=== PATIENT | male | born 1970 | race Caucasian/White ===

== ENCOUNTER 2017-06-15 14:49 | Inpatient (IN) | payer BC ==
[~2017-06-15] VITALS: Ht 188 cm; Wt 117.9 kg
[~2017-06-15 14:49] MED LIST: IBUPROFEN800 MG ORAL; PERCOCET 5-3251 EACH ORAL; ZOFRAN ODT4 MG ORAL
[2017-06-15] MEDS ORDERED: Dicyclomine HCl 10mg/5ml oral soln ORAL ONE (15:15)
[2017-06-15] MEDS ORDERED: Mylanta II UD 30ml ORAL ONE (15:15)
[2017-06-15] MEDS ORDERED: Lidocaine 2% Visc 15ml soln ORAL ONE (15:15)
[2017-06-15 15:30] VITALS: BP 143/79
--- NOTE | 2017-06-15 15:40 | Emergency Room Report ---
History of Present Illness General Chief Complaint: Abdominal Pain Source: Patient Present Illness HPI 46-year-old male, history of gout, kidney stones, p/w epigastric abdominal pain one day. Patient states pain started after vomiting, localized to the gastric and left upper quadrant, non radiating, burning in nature, intermittent. Worse with eating, No relieving factors. Severity is 5/10. Pt reports n/v, 2 episodes of nbnb vomiting, denies diarrhea Denies fever, chills. No hx of abdominal surgeries. No hx of endoscopies/colonoscopies. Patient states that this does not feel like his kidney stone pain Allergies: Coded Allergies: No Known Allergies (Unverified , 04/11/15) Patient History Past Medical History: see triage record Past Surgical History: none Pertinent Family History: none Reviewed Nursing Documentation: PMH: Agreed, PSxH: Agreed Nursing Documentation-PMH Past Medical History: No History, Except For Review of Systems All Other Systems: negative except mentioned in HPI Physical Exam Vital Signs Date Time Temp Pulse Resp B/P (MAP) Pulse Ox O2 Delivery O2 Flow Rate FiO2 06/15/17 14:54 80 18 158/97 97 Room Air Sp02 EP Interpretation: reviewed, normal General Appearance: normal inspection, well appearing, no apparent distress, alert, GCS 15, non-toxic Head: normocephalic, atraumatic Eyes: bilateral eye normal inspection, bilateral eye PERRL, bilateral eye EOMI ENT: normal ENT inspection, normal pharynx, normal voice, moist mucus membranes Neck: normal inspection, full range of motion, supple Respiratory: normal inspection, lungs clear, normal breath sounds, no respiratory distress, no retraction, no wheezing, speaking full sentences, chest symmetrical Cardiovascular #1: normal inspection, regular rate, rhythm, no edema, normal capillary refill Cardiovascular #2: 2+ radial (R), 2+ radial (L) Gastrointestinal: normal inspection, non tender, soft, non-distended, no guarding Genitourinary: no CVA tenderness Musculoskeletal: normal inspection, back normal, normal range of motion, non- tender Neurologic: normal inspection, alert, oriented x3, responsive, motor strength/ tone normal, sensory intact, normal gait, speech normal Psychiatric: normal inspection, judgement/insight normal, memory normal Skin: normal inspection, normal color, no rash, warm/dry, well hydrated, normal turgor Medical Decision Making Diagnostic Impression: Primary Impression: Pancreatitis Additional Impression: Nausea & vomiting ER Course 46-year-old male with epigastric abdominal pain Differential Diagnosis: Gastritis, gastroenteritis, cholecystitis, appendicitis, diverticulitis, cardiac , UTI/pyelo At this time abdomen is soft nontender, appears very well and is not in any pain , not likely to have acute intra-abdominal surgical pathology, will hold CT for now. Plan: Basic labs, ua, ekg Pepcid, maalox, pain control, IVF ER course: Patient has remained stable during ED stay. Pain not improved labs showing pancreatitis with elevated lipase abd continues to be soft, US performed of abdomen IVF and morphine given, pt NPO Disposition: Patient is to be admitted to med surg to Dr. Doe who has accepted patient for admission Please note that this Emergency Department Report was dictated using Car reviewsspiritual counselor technology software, occasionally this can lead to erroneous entry secondary to interpretation by the dictation equipment EKG Diagnostic Results EP Interpretation: Yes Rate: normal Rhythm: NSR ST Segments: No acute changes ASA given to patient: No Rhythm Strip EP Interpretation: Yes Rate: 68 Rhythm: NSR, no PVCs, no ectopy Laboratory Tests Test 06/15/17 15:21 06/15/17 15:55 White Blood Count 9.1 K/UL (4.8-10.8) Red Blood Count 5.67 M/UL (4.70-6.10) Hemoglobin 16.9 G/DL (14.2-18.0) Hematocrit 50.2 % (42.0-52.0) Mean Corpuscular Volume 89 FL (80-99) Mean Corpuscular Hemoglobin 29.9 PG (27.0-31.0) Mean Corpuscular Hemoglobin Concent 33.7 G/DL (32.0-36.0) Red Cell Distribution Width 11.2 % (11.6-14.8) L Platelet Count 281 K/UL (150-450) Mean Platelet Volume 8.3 FL (6.5-10.1) Neutrophils (%) (Auto) 79.4 % (45.0-75.0) H Lymphocytes (%) (Auto) 14.4 % (20.0-45.0) L Monocytes (%) (Auto) 4.3 % (1.0-10.0) Eosinophils (%) (Auto) 1.3 % (0.0-3.0) Basophils (%) (Auto) 0.6 % (0.0-2.0) Sodium Level 141 MMOL/L (136-145) Potassium Level 3.7 MMOL/L (3.5-5.1) Chloride Level 104 MMOL/L (98-107) Carbon Dioxide Level 27 MMOL/L (21-32) Anion Gap 10 mmol/L (5-15) Blood Urea Nitrogen 13 mg/dL (7-18) Creatinine 0.9 MG/DL (0.55-1.30) Estimate Glomerular Filtration Rate > 60 mL/min (>60) Glucose Level 202 MG/DL (74-106) H Calcium Level 9.6 MG/DL (8.5-10.1) Total Bilirubin 2.2 MG/DL (0.2-1.0) H Direct Bilirubin 1.2 MG/DL (0.0-0.3) H Aspartate Amino Transferase (AST) 261 U/L (15-37) H Alanine Aminotransferase (ALT) 186 U/L (12-78) H Alkaline Phosphatase 72 U/L (46-116) Total Protein 7.1 G/DL (6.4-8.2) Albumin 4.3 G/DL (3.4-5.0) Globulin 2.8 g/dL Albumin/Globulin Ratio 1.5 (1.0-2.7) Lipase 93758 U/L (73-393) H Urine Color Yellow Urine Appearance Clear Urine pH 7 (4.5-8.0) Urine Specific Tyler 1.010 (1.005-1.035) Urine Protein 2+ (NEGATIVE) H Urine Glucose (UA) Negative (NEGATIVE) Urine Ketones Negative (NEGATIVE) Urine Occult Blood Negative (NEGATIVE) Urine Nitrite Negative (NEGATIVE) Urine Bilirubin Negative (NEGATIVE) Urine Urobilinogen Normal MG/DL (0.0-1.0) Urine Leukocyte Esterase 1+ (NEGATIVE) H Urine RBC 0-2 /HPF (0 - 0) H Urine WBC 0-2 /HPF (0 - 0) Urine Squamous Epithelial Cells None /LPF (NONE/OCC) Urine Bacteria Few /HPF (NONE) Last Vital Signs Date Time Temp Pulse Resp B/P (MAP) Pulse Ox O2 Delivery O2 Flow Rate FiO2 06/15/17 14:54 80 18 158/97 97 Room Air Disposition: ADMITTED INPATIENT Condition: Serious Scripts Famotidine (PEPCID) 40 Mg Tablet 40 MG PO DAILY for 7 Days, #7 TAB 0 Refills Prov: Jasper Cortez M.D. 06/15/17 Referrals: NON PHYSICIAN (PCP) Jasper Cortez M.D. Jun 15, 2017 15:40
[2017-06-15 15:43] LABS: BASOPHILS % (AUTO) 0.6 % (0.0-2.0); EOSINOPHILS % (AUTO) 1.3 % (0.0-3.0); LYMPHOCYTES % (AUTO) 14.4 % (20.0-45.0); MEAN CORPUSCULAR HEMOGLOBIN 29.9 PG (27.0-31.0); MEAN CORPUSCULAR HGB CONC 33.7 G/DL (32.0-36.0); MEAN CORPUSCULAR VOLUME 89 FL (80-99); MEAN PLATELET VOLUME 8.3 FL (6.5-10.1); MONOCYTES % (AUTO) 4.3 % (1.0-10.0); NEUTROPHILS % (AUTO) 79.4 % (45.0-75.0); PLATELET COUNT 281 K/UL (150-450); RED BLOOD COUNT 5.67 M/UL (4.70-6.10); RED CELL DISTRIBUTION WIDTH 11.2 % (11.6-14.8); WHITE BLOOD COUNT 9.1 K/UL (4.8-10.8)
[2017-06-15 15:53] LABS: ANION GAP 10 mmol/L (5-15); CALCIUM 9.6 MG/DL (8.5-10.1); CARBON DIOXIDE 27 MMOL/L (21-32); CHLORIDE 104 MMOL/L (98-107); CREATININE 0.9 MG/DL (0.55-1.30); GLOMERULAR FILTRATION RATE > 60 mL/min (>60); POTASSIUM 3.7 MMOL/L (3.5-5.1); SODIUM 141 MMOL/L (136-145)
[2017-06-15] MEDS ORDERED: PEPCID40 MG PO (16:04)
[2017-06-15 16:07] LABS: ALANINE AMINOTRANSFERASE 186 U/L (12-78); ALBUMIN/GLOBULIN RATIO 1.5 (1.0-2.7); ASPARTATE AMINO TRANSFERASE 261 U/L (15-37); LIPASE 14502 U/L (73-393); TOTAL PROTEIN 7.1 G/DL (6.4-8.2)
[2017-06-15 16:08] LABS: APPEARANCE,URINE CLEAR; KETONES,URINE NEGATIVE (NEGATIVE); LEUKOCYTE ESTERASE ,URINE 1+ (NEGATIVE); NITRITE,URINE NEGATIVE (NEGATIVE); PH,URINE 7 (4.5-8.0); PROTEIN,URINE 2+ (NEGATIVE); UROBILINOGEN,URINE NORMAL MG/DL (0.0-1.0)
[2017-06-15 16:14] LABS: BILIRUBIN,DIRECT 1.2 MG/DL (0.0-0.3)
[2017-06-15 16:14] LABS: BACTERIA,URINE FEW /HPF; RBC,URINE 0-2 /HPF (0 - 0); WBC,URINE 0-2 /HPF (0 - 0)
[2017-06-15] MEDS ORDERED: Morphine Sulfate 4mg/ml Inj IVP ONE (16:30)
[2017-06-15 17:32] VITALS: BP 154/45
[2017-06-15] MEDS ORDERED: ALLOPURINOL300 M1 ORAL (18:44)
[2017-06-15] MEDS ORDERED: POTASSIUM CITR15 MEQ PO (18:44)
[2017-06-15 19:00] VITALS: BP 152/80
[2017-06-15 19:15] VITALS: BP 154/82
[2017-06-15 20:00] VITALS: BP 142/88
[2017-06-15] MEDS ORDERED: Flu Vaccine Quadrivalent 0.5ml IM ONE (21:00)
[2017-06-15] MEDS: NS w/KCl 20mEq 1,000 ML IV SCH (21:00)
[2017-06-15] MEDS: Morphine Sulfate 2mg/ml Inj IVP PRN (22:05)
[2017-06-16] VITALS (8 sets, daily range): BP systolic 139–154; BP diastolic 78–88
--- NOTE | 2017-06-16 00:15 | History and Physical Report ---
DATE OF ADMISSION: 06/15/2017 REASON FOR ADMISSION: Abdominal pain with laboratory evidence of pancreatitis. HISTORY OF PRESENT ILLNESS: This is a 46-year-old male with no prior history of hepatobiliary disease, presented to the emergency room with one day of vomiting, left upper quadrant abdominal pain, nausea, and anorexia. Symptoms were worsened after eating and laboratory workup was notable for a lipase level above 14,000. The patient felt well after Thanksgiving and up to yesterday eating well without any symptoms. He notes in April, he had an episode of abdominal discomfort that he attributed to an episode of stomach flu. He has never had any symptoms similar to today's presentation. The patient has never had an endoscopy or colonoscopy. No abdominal surgery. He is unaware of any history of gallstones. PAST MEDICAL HISTORY: Notable for gout and nephrolithiasis. ALLERGIES: None. FAMILY HISTORY: Noncontributory. SOCIAL HISTORY: Negative for smoking, alcohol, or substance abuse. He drinks maybe at most one drink four to five times a week. REVIEW OF SYSTEMS: Borderline cholesterol elevation in the past, otherwise, all systems negative. Of note, he has taken multitude of herbal remedies on frequent occasions over the past years. PHYSICAL EXAMINATION: GENERAL: The patient is well-developed, well-nourished, and moderately obese. VITAL SIGNS: Blood pressure 158/97, pulse 80, respirations 18, and afebrile. HEENT: Conjunctivae are pink. Sclerae are anicteric. Oropharynx clear. NECK: Supple. Jugular venous pressure normal. LUNGS: Clear. CARDIAC: Regular rhythm and rate. Normal S1 and S2 with no murmur. ABDOMEN: Soft. Mild tenderness in the midepigastric and right upper quadrant. No guarding. No rebound. EXTREMITIES: Without edema. SKIN: Without rash or discoloration. LABORATORY STUDIES: White count 9 and hemoglobin 16.9. Potassium 3.7 and glucose 202. AST and ALT are 261 and 186 respectively. Alkaline phosphatase 72. Lipase 14,502. Total bilirubin 2.2. IMPRESSION: 1. Acute pancreatitis. 2. Hyperglycemia. 3. Transaminitis. PLAN: 1. NPO. 2. Intravenous fluid hydration. 3. Serial hepatobiliary enzymes. 4. Abdominal ultrasound. 5. Lipid panel. 6. Pain control. 7. Further recommendations will follow based on results of preliminary workup. Jerzy Doe M.D. DR: MAIRELY JOB#: [id number] CC:
[2017-06-16] MEDS: NS w/KCl 20mEq 1,000 ML IV SCH ×3 (05:00→21:47)
[2017-06-16 08:02] LABS: BASOPHILS % (AUTO) 0.9 % (0.0-2.0); EOSINOPHILS % (AUTO) 1.3 % (0.0-3.0); LYMPHOCYTES % (AUTO) 15.7 % (20.0-45.0); MEAN CORPUSCULAR HEMOGLOBIN 30.2 PG (27.0-31.0); MEAN CORPUSCULAR HGB CONC 34.1 G/DL (32.0-36.0); MEAN CORPUSCULAR VOLUME 89 FL (80-99); MEAN PLATELET VOLUME 8.1 FL (6.5-10.1); MONOCYTES % (AUTO) 5.3 % (1.0-10.0); NEUTROPHILS % (AUTO) 76.9 % (45.0-75.0); PLATELET COUNT 276 K/UL (150-450); RED CELL DISTRIBUTION WIDTH 11.3 % (11.6-14.8); WHITE BLOOD COUNT 9.7 K/UL (4.8-10.8)
[2017-06-16 08:09] LABS: ALANINE AMINOTRANSFERASE 204 U/L (12-78); ANION GAP 7 mmol/L (5-15); ASPARTATE AMINO TRANSFERASE 121 U/L (15-37); BILIRUBIN,DIRECT 0.2 MG/DL (0.0-0.3); CALCIUM 8.6 MG/DL (8.5-10.1); CARBON DIOXIDE 28 MMOL/L (21-32); CHLORIDE 106 MMOL/L (98-107); CHOLESTEROL 159 MG/DL (< 200); CHOLESTEROL/HDL RATIO 4.8 (3.3-4.4); CREATININE 0.8 MG/DL (0.55-1.30); GLOMERULAR FILTRATION RATE > 60 mL/min (>60); LIPASE 2816 U/L (73-393); POTASSIUM 3.6 MMOL/L (3.5-5.1); SODIUM 141 MMOL/L (136-145); TOTAL PROTEIN 6.6 G/DL (6.4-8.2)
--- NOTE | 2017-06-16 10:10 | Diagnostic Imaging Report ---
Indication: Epigastric pain, nausea, vomiting Technique: Tomas-scale and duplex images of the upper abdomen were obtained Comparison: None Findings: Gallbladder demonstrates numerous small gallstones. No gallbladder wall thickening or pericholecystic fluid Sonographic Latham's sign is negative. Common bile duct measures 6 mm in diameter. No intrahepatic biliary ductal dilatation. Liver is enlarged, demonstrates diffusely increased echogenicity, consistent with diffuse hepatocellular disease, most likely fatty change. Focal sparing is noted in the usual location adjacent the gallbladder fossa. Portal vein and hepatic veins are patent. Pancreas is incompletely visualized due to overlying bowel gas, visualized portions are unremarkable. The spleen is enlarged, measuring 14.9 cm long axis dimension. Left kidney measures 14 cm in length. Right kidney measures 12.9 cm length. Both kidneys demonstrate normal echogenicity. There is no hydronephrosis. No focal abnormality . Abdominal aorta is partially obscured by bowel gas, visualized portions are non-aneurysmal . Impression: Cholelithiasis. Negative for dilated ducts Hepatomegaly. Liver demonstrates diffusely increased echogenicity, consistent with diffuse hepatocellular disease, most likely fatty change. Splenomegaly Note incomplete visualization of the abdominal aorta and pancreas
--- NOTE | 2017-06-16 16:32 | Consultation ---
History of Present Illness General Date patient seen: Jun 16, 2017 Chief Complaint: Abdominal Pain Reason for Consultation: gallstone pancreatitis Present Illness HPI 46 year old otherwise healthy male presented to ED with complaints of worsening upper abdominal pain x 1 day. As per patient, he was in his normal state of healthy until yesterday morning when he noted some sharp upper epigastric abdominal pain. Pain described as sharp 10/10 at max epigastric upper abdominal pain without radiation. pain associated with nausea and two episode of non bloody emesis. as pain worsened he came to ED for evaluation. states he has had similar but much milder episodes over the past year and believed it to be "gas" which would resolve shortly after onset. In ED labs demonstrated elevated LFT's and lipase. Ultrasound performed and demonstrated gallstones. Surgery called to evaluate PMHx: gout, kidney stones PSHx: none NKDA FHx: non contributory Social Hx: negative x3 Meds: K+ and allopurinol Allergies: Coded Allergies: BENZONATATE (Verified Allergy, Unknown, 06/15/17) ABDOMINAL PAIN.NAUSEA Medication History Scheduled Allopurinol* (Allopurinol*), 300 MG ORAL DAILY, (Reported) Famotidine (Pepcid), 40 MG PO DAILY Ibuprofen* (Motrin*), 800 MG ORAL Q8H Potassium Citrate (Potassium Citrate ER), 10 MEQ PO BID, (Reported) Scheduled PRN Ondansetron Odt* (Zofran Odt*), 4 MG ORAL Q8HR PRN for Nausea & Vomiting Oxycodone/Acetaminophen 5-325* (Percocet 5-325 Mg Tablet*), 1 TAB ORAL Q6H PRN for For Pain Patient History History Provided By: Patient Healthcare decision maker SELF Resuscitation status Full Code Advanced Directive on File No Past Medical/Surgical History Past Medical/Surgical History: (1) Acute gallstone pancreatitis Review of Systems Constitutional: Denies: no symptoms, see HPI, chills, sweats, fever, malaise, weakness, other Eye: Denies: no symptoms, see HPI, eye pain, blurred vision, tearing, double vision, nose pain, nose congestion, acuity changes, discharge, other ENT: Denies: no symptoms, see HPI, ear pain, ear discharge, nose pain, nose congestion, throat pain, throat swelling, mouth pain, hearing loss, nasal discharge, other Respiratory: Denies: no symptoms, see HPI, cough, orthopnea, shortness of breath, stridor, wheezing, LEWIS, sputum, other Cardiovascular: Denies: no symptoms, see HPI, chest pain, edema, palpitations, syncope, PND, other Gastrointestinal: Reports: abdominal pain, nausea, vomiting Genitourinary: Denies: no symptoms, see HPI, discharge, dysuria, frequency, hematuria, pain, retention, incontinence, urgency, vag bleed/dc, other Musculoskeletal: Denies: no symptoms, see HPI, back pain, gout, joint pain, joint swelling, muscle pain, muscle stiffness, other Skin: Denies: no symptoms, see HPI, rash, change in color, change in hair/nails , dryness, lesions, other Psychiatric: Denies: no symptoms, see HPI, prior hx, anxiety, depressed feelings, emotional problems, SI, HI, hallucinations, other Neurological: Denies: no symptoms, see HPI, headache, numbness, paresthesia, seizure, tingling, tremors, focal weakness, syncope, dizziness, other Endocrine: Denies: no symptoms, see HPI, excessive sweating, flushing, intolerance to temperature, increased thirst, increased urine, unexplained weight loss, other Hematologic/Lymphatic: Denies: no symptoms, see HPI, anemia, blood clots, easy bleeding, easy bruising, swollen glands, diathesis, other All Other Systems: negative except mentioned in HPI Physical Exam General Appearance: WD/WN, no apparent distress, alert Lines, tubes and drains: peripheral HEENT: mucous membranes moist, PERRL Neck: normal inspection Respiratory/Chest: normal breath sounds, no respiratory distress, no accessory muscle use Cardiovascular/Chest: normal peripheral pulses, normal rate, regular rhythm Abdomen: non tender, soft, no organomegaly, no mass, distended, other - mild epigastric discomfort on deep palpation Extremities: normal inspection Skin Exam: normal pigmentation, warm/dry Neurologic: alert, oriented x 3, responsive Last 24 Hour Vital Signs Date Time Temp Pulse Resp B/P (MAP) Pulse Ox O2 Delivery O2 Flow Rate FiO2 06/16/17 12:00 98.5 74 19 149/88 95 06/16/17 09:00 98.0 74 20 154/87 95 06/16/17 08:00 97.8 72 19 146/86 95 06/16/17 04:01 Room Air 06/16/17 04:00 97.9 18 153/78 92 06/16/17 00:01 Room Air 06/16/17 00:00 97.9 76 19 139/84 93 06/15/17 20:01 Room Air 06/15/17 20:00 97.9 74 18 142/88 93 06/15/17 19:15 97.9 76 19 154/82 95 Room Air 06/15/17 19:00 97.9 76 19 152/80 95 Room Air 06/15/17 18:00 74 24 154/45 95 Room Air 06/15/17 17:32 74 24 154/45 95 Room Air Intake and Output 06/16/17 06/17/17 19:00 07:00 Intake Total 817.5 ml Balance 817.5 ml IV Total 817.5 ml Laboratory Tests Test 06/16/17 07:29 White Blood Count 9.7 K/UL (4.8-10.8) Red Blood Count 5.10 M/UL (4.70-6.10) Hemoglobin 15.4 G/DL (14.2-18.0) Hematocrit 45.2 % (42.0-52.0) Mean Corpuscular Volume 89 FL (80-99) Mean Corpuscular Hemoglobin 30.2 PG (27.0-31.0) Mean Corpuscular Hemoglobin Concent 34.1 G/DL (32.0-36.0) Red Cell Distribution Width 11.3 % (11.6-14.8) L Platelet Count 276 K/UL (150-450) Mean Platelet Volume 8.1 FL (6.5-10.1) Neutrophils (%) (Auto) 76.9 % (45.0-75.0) H Lymphocytes (%) (Auto) 15.7 % (20.0-45.0) L Monocytes (%) (Auto) 5.3 % (1.0-10.0) Eosinophils (%) (Auto) 1.3 % (0.0-3.0) Basophils (%) (Auto) 0.9 % (0.0-2.0) Sodium Level 141 MMOL/L (136-145) Potassium Level 3.6 MMOL/L (3.5-5.1) Chloride Level 106 MMOL/L (98-107) Carbon Dioxide Level 28 MMOL/L (21-32) Anion Gap 7 mmol/L (5-15) Blood Urea Nitrogen 11 mg/dL (7-18) Creatinine 0.8 MG/DL (0.55-1.30) Estimat Glomerular Filtration Rate > 60 mL/min (>60) Glucose Level 130 MG/DL (74-106) H Hemoglobin A1c 6.1 % (4.3-6.0) H Calcium Level 8.6 MG/DL (8.5-10.1) Total Bilirubin 0.9 MG/DL (0.2-1.0) Direct Bilirubin 0.2 MG/DL (0.0-0.3) Aspartate Amino Transf (AST/SGOT) 121 U/L (15-37) H Alanine Aminotransferase (ALT/SGPT) 204 U/L (12-78) H Alkaline Phosphatase 67 U/L (46-116) Total Protein 6.6 G/DL (6.4-8.2) Albumin 3.7 G/DL (3.4-5.0) Triglycerides Level 170 MG/DL (30-150) H Cholesterol Level 159 MG/DL (< 200) LDL Cholesterol 108 mg/dL (<100) H HDL Cholesterol 33 MG/DL (40-60) L Cholesterol/HDL Ratio 4.8 (3.3-4.4) H Lipase 2816 U/L (73-393) H Height (Feet): 6 Height (Inches): 2.00 Weight (Pounds): 260 Medications Current Medications Medications (Trade) Dose Ordered Sig/Vero Route PRN Reason Start Time Stop Time Status Last Admin Dose Admin Clonidine HCl (Catapres) 0.1 mg Q4H PRN ORAL SBP above 160 06/16/17 11:00 07/16/17 10:59 Famotidine (Pepcid I.v.) 20 mg Q12HR IVP 06/16/17 09:00 07/16/17 08:59 06/16/17 08:35 Heparin Sodium (Porcine) (Heparin 5000 units/ml) 5,000 units EVERY 12 HOURS SUBQ 06/16/17 21:00 07/16/17 20:59 Morphine Sulfate (Morphine Sulfate) 2 mg Q4H PRN IVP For Pain Scale 4-10 06/15/17 21:30 06/22/17 21:29 06/15/17 22:05 Ondansetron HCl (Zofran) 4 mg Q4H PRN IVP Nausea & Vomiting 06/15/17 19:15 07/15/17 19:14 06/15/17 22:10 Sodium Chloride 1,000 ml @ 125 mls/hr Q8H IV 06/15/17 20:00 07/15/17 19:59 06/16/17 12:23 Assessment/Plan Problem List: (1) Acute gallstone pancreatitis Assessment & Plan: 46 year old male with acute gallstone pancreatitis. Afebrile, HD stable, no leukocytosis, lft's and lipase improving. Discussed above findings with patient in detail. Given acute episode would recommend cholecystectomy during this admission once pancreatitis resolves. Discussed care with patient and he states that he has been doing research on the topic and has decided that he would like to proceed with cholecystectomy during this admission. Risks, benefits, and alternatives to surgery discussed with patient. Will proceed with surgery once pancreatitis resolves over the next few days. -NPO with IV fluids -trend labs -serial exams -will follow. thank you for this consultation. ICD Codes: K85.10 - Biliary acute pancreatitis without necrosis or infection SNOMED: [id number] Status: stable Tom Osborn Jun 16, 2017 16:32
[2017-06-16] MEDS: Morphine Sulfate 2mg/ml Inj IVP PRN (17:20)
--- NOTE | 2017-06-16 21:47 | General Progress Note ---
Assessment/Plan Assessment/Plan GI Consult Dictated Biliary pancreatitis Symptoms and exam improving Agree with margarita woodson with [facility] Thank you Gunner Dupont MD Subjective Allergies: Coded Allergies: BENZONATATE (Verified Allergy, Unknown, 06/15/17) ABDOMINAL PAIN.NAUSEA Objective Last 24 Hour Vital Signs Date Time Temp Pulse Resp B/P (MAP) Pulse Ox O2 Delivery O2 Flow Rate FiO2 06/16/17 20:00 98.2 76 21 154/83 93 Room Air 06/16/17 18:17 95 Room Air 06/16/17 17:58 97.4 06/16/17 16:00 97.4 74 19 148/88 95 06/16/17 12:00 95 Room Air 06/16/17 12:00 98.5 74 19 149/88 95 06/16/17 09:00 98.0 74 20 154/87 95 06/16/17 08:00 97.8 72 19 146/86 95 06/16/17 08:00 95 Room Air 06/16/17 04:01 Room Air 06/16/17 04:00 97.9 18 153/78 92 06/16/17 00:01 Room Air 06/16/17 00:00 97.9 76 19 139/84 93 Intake and Output 06/16/17 06/17/17 19:00 07:00 Intake Total 1067.5 ml Balance 1067.5 ml IV Total 1067.5 ml # Voids 3 Laboratory Tests 06/16/17 07:29: White Blood Count 9.7, Red Blood Count 5.10, Hemoglobin 15.4, Hematocrit 45.2, Mean Corpuscular Volume 89, Mean Corpuscular Hemoglobin 30.2, Mean Corpuscular Hemoglobin Concent 34.1, Red Cell Distribution Width 11.3L, Platelet Count 276, Mean Platelet Volume 8.1, Neutrophils (%) (Auto) 76.9H, Lymphocytes (%) (Auto) 15.7L, Monocytes (%) (Auto) 5.3, Eosinophils (%) (Auto) 1.3, Basophils (%) (Auto ) 0.9, Sodium Level 141, Potassium Level 3.6, Chloride Level 106, Carbon Dioxide Level 28, Anion Gap 7, Blood Urea Nitrogen 11, Creatinine 0.8, Estimat Glomerular Filtration Rate > 60, Glucose Level 130H, Hemoglobin A1c 6.1H, Calcium Level 8.6, Total Bilirubin 0.9, Direct Bilirubin 0.2, Aspartate Amino Transf (AST/SGOT) 121H, Alanine Aminotransferase (ALT/SGPT) 204H, Alkaline Phosphatase 67, Total Protein 6.6, Albumin 3.7, Triglycerides Level 170H, Cholesterol Level 159, LDL Cholesterol 108H, HDL Cholesterol 33L, Cholesterol/ HDL Ratio 4.8H, Lipase 2816H Height (Feet): 6 Height (Inches): 2.00 Weight (Pounds): 260 GUNNER DUPONT Jun 16, 2017 21:47
[2017-06-16] MEDS: Heparin 5000 units/ml inj SUBQ SCH (21:55)
--- NOTE | 2017-06-16 22:15 | Progress Note ---
DATE: 06/16/2017 INTERNAL MEDICINE PROGRESS NOTE SUBJECTIVE: The patient's abdominal pain has decreased. No nausea or vomiting. Afebrile. OBJECTIVE: VITAL SIGNS: Blood pressure 148/88, heart rate 74, respiratory rate 19, and afebrile. LUNGS: Clear. CARDIAC: Regular. ABDOMEN: Distended, soft and mildly tender in the midepigastric region. EXTREMITIES: No edema. LABORATORY AND DIAGNOSTIC DATA: White count 9.7. Lipase down to 2800. Potassium 3.6. AST and ALT 121 and 204. Abdominal ultrasound reveals multiple stones. Common bile duct is 6 millimeters. IMPRESSION: Acute pancreatitis likely due to gallstones. PLAN: Continue NPO. Intravenous fluid hydration. Monitor hepatobiliary parameters. Gastrointestinal and surgical evaluations obtained. Anticipate cholecystectomy once pancreatitis has resolved. Elevated blood pressure will be monitored, p.r.n. medications on board for blood pressure spikes. Jerzy Doe M.D. DR: AFTAB JOB#: [id number] CC:
[2017-06-17] VITALS (7 sets, daily range): BP systolic 135–150; BP diastolic 69–91
--- NOTE | 2017-06-17 02:45 | Consultation ---
DATE OF CONSULTATION: 06/16/2017 GASTROENTEROLOGY CONSULTATION CONSULTING PHYSICIAN: Gunner Dupont M.D. REFERRING PHYSICIAN: Jerzy Doe M.D. CHIEF COMPLAINT: I was asked this patient by Dr. Jerzy Doe for evaluation of pancreatitis. HISTORY OF PRESENT ILLNESS: The patient is a pleasant 46-year-old white man without any significant gastrointestinal history who comes into the hospital due to acute vomiting and severe abdominal pain. It is for about a day in the epigastric region with some vomiting. The patient states he may have had 3-4 episodes of similar occurrences in the past few months, but they were brief and self-limited and he attributed these to something bad that he ate. On this occasion, however, the pain was very severe and came to emergency room where he was found to have lipase of 14,000 and was diagnosed with gallstone pancreatitis. Gallstones were also seen on the abdominal ultrasound imaging study. There is no biliary ductal dilatation reported. PAST MEDICAL HISTORY: Remarkable for history of gout and history of kidney stones. FAMILY HISTORY: Positive for breast cancer in mother. SOCIAL HISTORY: The patient is . He has three children. He is at home at this point and he does not work. MEDICATIONS: See the chart list for details. REVIEW OF SYSTEMS: Otherwise negative. PHYSICAL EXAMINATION: GENERAL: A pleasant, obese white man seen in his room. HEENT: Normocephalic, atraumatic. Sclerae anicteric. Oropharynx clear. NECK: Supple. CHEST: Clear to auscultation. CARDIOVASCULAR: Revealed regular rate. ABDOMEN: Soft, minimally tender in the epigastric region without guarding or rebound. EXTREMITIES: Revealed no edema. LABORATORY DATA: Noted. ASSESSMENT: This patient presents with acute gallstone pancreatitis which is in rapid resolution phase. The patient is minimally tender and his lipase decline is lagging his clinical improvement. The patient should be seen by surgical staff and should be considered for laparoscopic cholecystectomy for definitive treatment. An intraoperative cholangiogram should also be done at that time to confirm lack of common bile duct stones. For the time being, the patient can be kept n.p.o., but probably can be tried on liquid diet by tomorrow. RECOMMENDATIONS: Per above discussion and per orders written in the chart. Thank you for asking me to participate in the care of this patient. Gunner Dupont M.D. DR: LUCAS JOB#: [id number] CC: VERNA
[2017-06-17] MEDS: NS w/KCl 20mEq 1,000 ML IV SCH ×4 (05:00→23:02)
[2017-06-17 05:45] LABS: BASOPHILS % (AUTO) 0.8 % (0.0-2.0); EOSINOPHILS % (AUTO) 3.2 % (0.0-3.0); LYMPHOCYTES % (AUTO) 17.9 % (20.0-45.0); MEAN CORPUSCULAR HEMOGLOBIN 30.7 PG (27.0-31.0); MEAN CORPUSCULAR HGB CONC 34.2 G/DL (32.0-36.0); MEAN CORPUSCULAR VOLUME 90 FL (80-99); MEAN PLATELET VOLUME 8.4 FL (6.5-10.1); MONOCYTES % (AUTO) 6.9 % (1.0-10.0); NEUTROPHILS % (AUTO) 71.2 % (45.0-75.0); PLATELET COUNT 258 K/UL (150-450); RED BLOOD COUNT 5.02 M/UL (4.70-6.10); RED CELL DISTRIBUTION WIDTH 11.5 % (11.6-14.8); WHITE BLOOD COUNT 9.2 K/UL (4.8-10.8)
[2017-06-17 06:17] LABS: ALANINE AMINOTRANSFERASE 142 U/L (12-78); ALBUMIN/GLOBULIN RATIO 1.1 (1.0-2.7); ANION GAP 6 mmol/L (5-15); ASPARTATE AMINO TRANSFERASE 47 U/L (15-37); CALCIUM 8.8 MG/DL (8.5-10.1); CARBON DIOXIDE 29 MMOL/L (21-32); CHLORIDE 104 MMOL/L (98-107); CREATININE 0.7 MG/DL (0.55-1.30); GLOMERULAR FILTRATION RATE > 60 mL/min (>60); LIPASE 789 U/L (73-393); SODIUM 139 MMOL/L (136-145); TOTAL PROTEIN 6.8 G/DL (6.4-8.2)
[2017-06-17] MEDS: Heparin 5000 units/ml inj SUBQ SCH ×2 (08:23→21:00)
--- NOTE | 2017-06-17 09:26 | General Surgery Progress Note ---
General Surgery-Progress Note Subjective Symptoms: improved, tolerating diet Additional Comments patient seen and examined at bedside. no acute events. doing well. tolerating oral diet. ambulatory. no n/v/f/c. pain improved. Objective Last 24 Hour Vital Signs Date Time Temp Pulse Resp B/P (MAP) Pulse Ox O2 Delivery O2 Flow Rate FiO2 06/17/17 08:00 98.3 79 19 135/83 95 06/17/17 04:01 Room Air 06/17/17 04:00 98.0 76 21 144/79 94 06/17/17 00:01 Room Air 06/17/17 00:00 98.1 71 21 138/69 94 Room Air 06/16/17 21:00 98.2 76 21 154/83 93 Room Air 06/16/17 20:01 Room Air 06/16/17 20:00 98.2 76 21 154/83 93 Room Air 06/16/17 18:17 95 Room Air 06/16/17 17:58 97.4 06/16/17 16:00 97.4 74 19 148/88 95 06/16/17 12:00 95 Room Air 06/16/17 12:00 98.5 74 19 149/88 95 Drains: none Cardiovascular: RSR Respiratory: clear Abdomen: soft, non-tender, present bowel sounds Extremities: no edema, no tenderness Laboratory Tests Test 06/17/17 04:15 White Blood Count 9.2 K/UL (4.8-10.8) Red Blood Count 5.02 M/UL (4.70-6.10) Hemoglobin 15.4 G/DL (14.2-18.0) Hematocrit 45.1 % (42.0-52.0) Mean Corpuscular Volume 90 FL (80-99) Mean Corpuscular Hemoglobin 30.7 PG (27.0-31.0) Mean Corpuscular Hemoglobin Concent 34.2 G/DL (32.0-36.0) Red Cell Distribution Width 11.5 % (11.6-14.8) L Platelet Count 258 K/UL (150-450) Mean Platelet Volume 8.4 FL (6.5-10.1) Neutrophils (%) (Auto) 71.2 % (45.0-75.0) Lymphocytes (%) (Auto) 17.9 % (20.0-45.0) L Monocytes (%) (Auto) 6.9 % (1.0-10.0) Eosinophils (%) (Auto) 3.2 % (0.0-3.0) H Basophils (%) (Auto) 0.8 % (0.0-2.0) Sodium Level 139 MMOL/L (136-145) Potassium Level 4.0 MMOL/L (3.5-5.1) Chloride Level 104 MMOL/L (98-107) Carbon Dioxide Level 29 MMOL/L (21-32) Anion Gap 6 mmol/L (5-15) Blood Urea Nitrogen 8 mg/dL (7-18) Creatinine 0.7 MG/DL (0.55-1.30) Estimat Glomerular Filtration Rate > 60 mL/min (>60) Glucose Level 110 MG/DL (74-106) H Calcium Level 8.8 MG/DL (8.5-10.1) Total Bilirubin 0.9 MG/DL (0.2-1.0) Aspartate Amino Transf (AST/SGOT) 47 U/L (15-37) H Alanine Aminotransferase (ALT/SGPT) 142 U/L (12-78) H Alkaline Phosphatase 69 U/L (46-116) Total Protein 6.8 G/DL (6.4-8.2) Albumin 3.6 G/DL (3.4-5.0) Globulin 3.2 g/dL Albumin/Globulin Ratio 1.1 (1.0-2.7) Lipase 789 U/L (73-393) H Plan Problems: (1) Acute gallstone pancreatitis Assessment & Plan: 46 year old male with acute gallstone pancreatitis. Afebrile, HD stable, no leukocytosis, lft's and lipase improving. Discussed above findings with patient in detail. Given acute episode would recommend cholecystectomy during this admission once pancreatitis resolves. Discussed care with patient and he states that he has been doing research on the topic and has decided that he would like to proceed with cholecystectomy during this admission. Risks, benefits, and alternatives to surgery discussed with patient. Will proceed with surgery once pancreatitis resolves over the next few days. -okay for liquid diet. will make NPO at midnight the evening prior to surgery. -decrease IV fluids -tenatively scheduled for lap vs open kandice on Tuesday -trend labs Tom Osborn Jun 17, 2017 09:26
--- NOTE | 2017-06-17 21:51 | General Progress Note ---
Assessment/Plan Assessment/Plan Assessment - gallstone pancreatitis - obesity Recommendations - follow labs and exam - diet per surgery - lap kandice Tuesday Subjective Allergies: Coded Allergies: BENZONATATE (Verified Allergy, Unknown, 06/15/17) ABDOMINAL PAIN.NAUSEA Subjective Feels better tolerating liquids less pain Objective Last 24 Hour Vital Signs Date Time Temp Pulse Resp B/P (MAP) Pulse Ox O2 Delivery O2 Flow Rate FiO2 06/17/17 20:00 98.9 83 18 142/91 95 Room Air 06/17/17 16:00 98.4 82 19 150/89 94 06/17/17 12:00 98.7 82 19 140/81 95 06/17/17 09:00 98.6 79 20 141/80 95 06/17/17 08:00 98.3 79 19 135/83 95 06/17/17 04:01 Room Air 06/17/17 04:00 98.0 76 21 144/79 94 06/17/17 00:01 Room Air 06/17/17 00:00 98.1 71 21 138/69 94 Room Air Intake and Output 06/17/17 06/18/17 19:00 07:00 Intake Total 1205 ml 250 ml Balance 1205 ml 250 ml Intake Oral 1080 ml IV Total 125 ml 250 ml # Voids 7 Laboratory Tests 06/17/17 04:15: White Blood Count 9.2, Red Blood Count 5.02, Hemoglobin 15.4, Hematocrit 45.1, Mean Corpuscular Volume 90, Mean Corpuscular Hemoglobin 30.7, Mean Corpuscular Hemoglobin Concent 34.2, Red Cell Distribution Width 11.5L, Platelet Count 258, Mean Platelet Volume 8.4, Neutrophils (%) (Auto) 71.2, Lymphocytes (%) (Auto) 17.9L, Monocytes (%) (Auto) 6.9, Eosinophils (%) (Auto) 3.2H, Basophils (%) ( Auto) 0.8, Sodium Level 139, Potassium Level 4.0, Chloride Level 104, Carbon Dioxide Level 29, Anion Gap 6, Blood Urea Nitrogen 8, Creatinine 0.7, Estimat Glomerular Filtration Rate > 60, Glucose Level 110H, Calcium Level 8.8, Total Bilirubin 0.9, Aspartate Amino Transf (AST/SGOT) 47H, Alanine Aminotransferase ( ALT/SGPT) 142H, Alkaline Phosphatase 69, Total Protein 6.8, Albumin 3.6, Globulin 3.2, Albumin/Globulin Ratio 1.1, Lipase 789H Height (Feet): 6 Height (Inches): 2.00 Weight (Pounds): 260 Objective Obese WM NCAT supple CTA RRR soft obese mild epig TTP no edema non focal FAZAL ANTUNEZ Jun 17, 2017 21:51
--- NOTE | 2017-06-18 01:00 | Progress Note ---
DATE: 06/17/2017 INTERNAL MEDICINE PROGRESS NOTE SUBJECTIVE: Abdominal pain has nearly resolved. No nausea or vomiting. The patient is tolerating clear liquids. Lipase level has decreased to less than 1000. OBJECTIVE: VITAL SIGNS: Blood pressure 142/91, pulse 83, and respirations 18. NECK: Supple. LUNGS: Clear. CARDIAC: Regular. Normal S1 and S2. ABDOMEN: Slightly distended. Minimally tender in the midepigastric region. No guarding. EXTREMITIES: No edema. IMPRESSION: 1. Mildly elevated blood pressure. 2. Possible hypertension. 3. Acute pancreatitis due to gallstones, resolving. 4. Cholelithiasis. PLAN: 1. Clear liquids p.r.n. 2. Antihypertensives. 3. Hydration by IV route. 4. Cholecystectomy anticipated in the next 48 hours once the acute pancreatitis has recovered. Jerzy Doe M.D. DR: SAVANNAH JOB#: [id number] CC:
[2017-06-18 04:00] VITALS: BP 131/88
[2017-06-18] MEDS: NS w/KCl 20mEq 1,000 ML IV SCH (07:41)
[2017-06-18 08:00] VITALS: BP_SYST 137; BP_SYST 97; BP_DIAS 49; BP_DIAS 89
[2017-06-18] MEDS: Heparin 5000 units/ml inj SUBQ SCH ×2 (08:26→20:38)
--- NOTE | 2017-06-18 09:19 | General Surgery Progress Note ---
General Surgery-Progress Note Subjective Symptoms: improved, tolerating diet, passing flatus, BM Additional Comments doing well. no complaints. pain resolved. no n/v/f/c. had loose BM. tolerating clears. Objective Last 24 Hour Vital Signs Date Time Temp Pulse Resp B/P (MAP) Pulse Ox O2 Delivery O2 Flow Rate FiO2 06/18/17 08:00 96.4 17 97/49 99 06/18/17 04:00 97.7 72 18 131/88 96 Room Air 06/17/17 20:00 98.9 83 18 142/91 95 Room Air 06/17/17 16:00 98.4 82 19 150/89 94 06/17/17 12:00 98.7 82 19 140/81 95 I&O Intake and Output 06/18/17 06/19/17 19:00 07:00 Intake Total 250 ml Balance 250 ml Intake Oral 250 ml # Voids 1 Cardiovascular: RSR Respiratory: clear Abdomen: soft, distended, non-tender, present bowel sounds Extremities: no edema, no tenderness Plan Problems: (1) Acute gallstone pancreatitis Assessment & Plan: 46 year old male with acute gallstone pancreatitis. Afebrile, HD stable, no leukocytosis, lft's and lipase improved. Discussed above findings with patient in detail. Given acute episode would recommend cholecystectomy during this admission once pancreatitis resolves. Discussed care with patient and he states that he has been doing research on the topic and has decided that he would like to proceed with cholecystectomy during this admission. Risks, benefits, and alternatives to surgery discussed with patient. Will proceed with surgery once pancreatitis resolves over the next few days. -okay for liquid diet. will make NPO at midnight the evening prior to surgery. -TKO IV fluids -scheduled for lap vs open kandice on Tuesday Tom Osborn Jun 18, 2017 09:19
[2017-06-18 12:00] VITALS: BP 142/83
[2017-06-18 16:00] VITALS: BP 154/90
--- NOTE | 2017-06-18 16:24 | Cardiology Report ---
APPROVED REPORT EKG Measurement Heart [id number] Normal sinus rhythm Normal ECG
[2017-06-18] MEDS ORDERED: NS w/KCl 20mEq 1,000 ML IV SCH (20:00)
[2017-06-18 20:14] VITALS: BP 148/87
--- NOTE | 2017-06-18 21:11 | General Progress Note ---
Assessment/Plan Assessment/Plan Assessment - gallstone pancreatitis - obesity Recommendations - follow labs and exam - diet per surgery - lap kandice Tuesday Subjective Allergies: Coded Allergies: BENZONATATE (Verified Allergy, Unknown, 06/15/17) ABDOMINAL PAIN.NAUSEA Subjective Feels better tolerating liquids less pain surgery scheduled for TUE Objective Last 24 Hour Vital Signs Date Time Temp Pulse Resp B/P (MAP) Pulse Ox O2 Delivery O2 Flow Rate FiO2 06/18/17 20:14 98.5 75 20 148/87 94 06/18/17 16:00 98.2 78 16 154/90 93 06/18/17 12:00 88.4 78 19 142/83 97 Room Air 06/18/17 08:00 98.2 81 18 137/89 94 06/18/17 04:00 97.7 72 18 131/88 96 Room Air Intake and Output 06/18/17 06/19/17 19:00 07:00 Intake Total 750 ml Balance 750 ml Intake Oral 750 ml # Voids 3 Height (Feet): 6 Height (Inches): 2.00 Weight (Pounds): 260 Objective Obese WM NCAT supple CTA RRR soft obese mild epig TTP no edema non focal FAZAL ANTUNEZ Jun 18, 2017 21:11
--- NOTE | 2017-06-18 22:00 | Progress Note ---
DATE: 06/18/2017 INTERNAL MEDICINE PROGRESS NOTE SUBJECTIVE: The patient has minimal abdominal pain at this time. It is somewhat worse with bloating after having clear liquids. No vomiting. OBJECTIVE: VITAL SIGNS: Afebrile. Vitals stable. NECK: Supple. LUNGS: Clear. CARDIAC: Regular. ABDOMEN: Softly distended. EXTREMITIES: Without edema. IMPRESSION: 1. Recovering biliary pancreatitis. 2. Cholelithiasis. 3. Borderline hypertension. PLAN: 1. Liquid diet. 2. Cholecystectomy planned over the next 48 hours. 3. Adjust intravenous fluids. 4. Reassess for antihypertensive therapies following surgery. Jerzy Doe M.D. DR: MARIELY JOB#: [id number] CC:
[2017-06-19 00:22] VITALS: BP 140/80
[2017-06-19 04:35] VITALS: BP 155/86
[2017-06-19 07:54] LABS: ALANINE AMINOTRANSFERASE 96 U/L (12-78); ALBUMIN/GLOBULIN RATIO 0.9 (1.0-2.7); ANION GAP 7 mmol/L (5-15); ASPARTATE AMINO TRANSFERASE 60 U/L (15-37); CALCIUM 9.5 MG/DL (8.5-10.1); CARBON DIOXIDE 28 MMOL/L (21-32); CHLORIDE 105 MMOL/L (98-107); CREATININE 0.8 MG/DL (0.55-1.30); GLOMERULAR FILTRATION RATE > 60 mL/min (>60); LIPASE 248 U/L (73-393); POTASSIUM 4.1 MMOL/L (3.5-5.1); SODIUM 140 MMOL/L (136-145)
[2017-06-19 08:00] VITALS: BP 166/93
[2017-06-19 08:27] LABS: BASOPHILS % (AUTO) 1.2 % (0.0-2.0); EOSINOPHILS % (AUTO) 5.7 % (0.0-3.0); LYMPHOCYTES % (AUTO) 26.3 % (20.0-45.0); MEAN CORPUSCULAR HGB CONC 34.9 G/DL (32.0-36.0); MEAN CORPUSCULAR VOLUME 89 FL (80-99); MEAN PLATELET VOLUME 8.5 FL (6.5-10.1); MONOCYTES % (AUTO) 7.8 % (1.0-10.0); NEUTROPHILS % (AUTO) 58.9 % (45.0-75.0); PLATELET COUNT 279 K/UL (150-450); RED CELL DISTRIBUTION WIDTH 11.1 % (11.6-14.8); WHITE BLOOD COUNT 6.8 K/UL (4.8-10.8)
[2017-06-19] MEDS: Heparin 5000 units/ml inj SUBQ SCH (08:47)
[2017-06-19 12:00] VITALS: BP 141/90
--- NOTE | 2017-06-19 13:24 | Pre-Procedure Note/Attestation ---
Pre-Procedure Note/Attestation Complete Prior to Procedure Planned Procedure: not applicable Procedure Narrative: laparoscopic cholecystectomy, possible open Attestation I attest that I discussed the nature of the procedure; its benefits; risks and complications; and alternatives (and the risks and benefits of such alternatives ), prior to the procedure, with the patient (or the patient's legal sales utility representative). I attest that, if there was a reasonable possibility of needing a blood transfusion, the patient (or the patient's legal sales utility representative) was given the [facility] standardized written summary, pursuant to the [place]a Blood Safety Act ([place] Health and Safety Code # 1645, as amended). I attest that I re-evaluated the patient just prior to the surgery and that there has been no change in the patient's H&P, except as documented below: Tom Osborn Jun 19, 2017 13:23
--- NOTE | 2017-06-19 14:05 | General Surgery Progress Note ---
General Surgery-Progress Note Subjective Symptoms: improved, pain absent, tolerating diet, passing flatus, BM Objective Last 24 Hour Vital Signs Date Time Temp Pulse Resp B/P (MAP) Pulse Ox O2 Delivery O2 Flow Rate FiO2 06/19/17 09:07 166/93 06/19/17 08:00 98.3 74 18 166/93 97 06/19/17 04:35 97.7 77 18 155/86 97 06/19/17 00:22 98.1 70 18 140/80 95 06/18/17 20:14 98.5 75 20 148/87 94 06/18/17 16:00 98.2 78 16 154/90 93 I&O Intake and Output 06/19/17 06/20/17 19:00 07:00 Intake Total 240 ml Balance 240 ml Intake Oral 240 ml Drains: none Cardiovascular: RSR Respiratory: clear Abdomen: soft, non-tender, present bowel sounds Extremities: no tenderness Laboratory Tests Test 06/19/17 04:50 White Blood Count 6.8 K/UL (4.8-10.8) Red Blood Count 4.80 M/UL (4.70-6.10) Hemoglobin 14.9 G/DL (14.2-18.0) Hematocrit 42.7 % (42.0-52.0) Mean Corpuscular Volume 89 FL (80-99) Mean Corpuscular Hemoglobin 31.0 PG (27.0-31.0) Mean Corpuscular Hemoglobin Concent 34.9 G/DL (32.0-36.0) Red Cell Distribution Width 11.1 % (11.6-14.8) L Platelet Count 279 K/UL (150-450) Mean Platelet Volume 8.5 FL (6.5-10.1) Neutrophils (%) (Auto) 58.9 % (45.0-75.0) Lymphocytes (%) (Auto) 26.3 % (20.0-45.0) Monocytes (%) (Auto) 7.8 % (1.0-10.0) Eosinophils (%) (Auto) 5.7 % (0.0-3.0) H Basophils (%) (Auto) 1.2 % (0.0-2.0) Sodium Level 140 MMOL/L (136-145) Potassium Level 4.1 MMOL/L (3.5-5.1) Chloride Level 105 MMOL/L (98-107) Carbon Dioxide Level 28 MMOL/L (21-32) Anion Gap 7 mmol/L (5-15) Blood Urea Nitrogen 8 mg/dL (7-18) Creatinine 0.8 MG/DL (0.55-1.30) Estimat Glomerular Filtration Rate > 60 mL/min (>60) Glucose Level 102 MG/DL (74-106) Calcium Level 9.5 MG/DL (8.5-10.1) Total Bilirubin 0.8 MG/DL (0.2-1.0) Aspartate Amino Transf (AST/SGOT) 60 U/L (15-37) H Alanine Aminotransferase (ALT/SGPT) 96 U/L (12-78) H Alkaline Phosphatase 75 U/L (46-116) Total Protein 7.0 G/DL (6.4-8.2) Albumin 3.4 G/DL (3.4-5.0) Globulin 3.6 g/dL Albumin/Globulin Ratio 0.9 (1.0-2.7) L Lipase 248 U/L (73-393) Plan Problems: (1) Acute gallstone pancreatitis Assessment & Plan: 46 year old male with acute gallstone pancreatitis. Afebrile, HD stable, labs okay. lipase normal now. Discussed above findings with patient in detail. Given acute episode would recommend cholecystectomy during this admission once pancreatitis resolves. Discussed care with patient and he states that he has been doing research on the topic and has decided that he would like to proceed with cholecystectomy during this admission. Risks, benefits, and alternatives to surgery discussed with patient. . -NPO at midnight -IV fluids @100cc/hr once npo -pt/ptt in AM -consent -scheduled for lap vs open kandice tomorrow. Tom Osborn Jun 19, 2017 14:05
[2017-06-19] MEDS: NS w/KCl 20mEq 1,000 ML IV SCH (14:45)
[2017-06-19 16:00] VITALS: BP 144/88
--- NOTE | 2017-06-19 20:21 | General Progress Note ---
Assessment/Plan Assessment/Plan Assessment - gallstone pancreatitis - obesity Recommendations - follow labs and exam - diet per surgery - lap kandice Tuesday - Rec IOC at time of lap kandice Subjective Allergies: Coded Allergies: BENZONATATE (Verified Allergy, Unknown, 06/15/17) ABDOMINAL PAIN.NAUSEA Subjective Feels better tolerating liquids less pain surgery scheduled for Tue Last 24 Hour Vital Signs Date Time Temp Pulse Resp B/P (MAP) Pulse Ox O2 Delivery O2 Flow Rate FiO2 06/19/17 18:26 71 151/83 06/19/17 16:00 98.0 79 20 144/88 97 Room Air 06/19/17 12:00 98.0 77 20 141/90 99 Room Air 06/19/17 09:07 166/93 06/19/17 08:00 98.3 74 18 166/93 97 06/19/17 04:35 97.7 77 18 155/86 97 06/19/17 00:22 98.1 70 18 140/80 95 Intake and Output 06/19/17 06/20/17 19:00 07:00 Intake Total 880 ml 100 ml Balance 880 ml 100 ml Intake Oral 480 ml IV Total 400 ml 100 ml # Voids 1 Laboratory Tests 06/19/17 04:50: White Blood Count 6.8, Red Blood Count 4.80, Hemoglobin 14.9, Hematocrit 42.7, Mean Corpuscular Volume 89, Mean Corpuscular Hemoglobin 31.0, Mean Corpuscular Hemoglobin Concent 34.9, Red Cell Distribution Width 11.1L, Platelet Count 279, Mean Platelet Volume 8.5, Neutrophils (%) (Auto) 58.9, Lymphocytes (%) (Auto) 26.3, Monocytes (%) (Auto) 7.8, Eosinophils (%) (Auto) 5.7H, Basophils (%) (Auto ) 1.2, Sodium Level 140, Potassium Level 4.1, Chloride Level 105, Carbon Dioxide Level 28, Anion Gap 7, Blood Urea Nitrogen 8, Creatinine 0.8, Estimat Glomerular Filtration Rate > 60, Glucose Level 102, Calcium Level 9.5, Total Bilirubin 0.8, Aspartate Amino Transf (AST/SGOT) 60H, Alanine Aminotransferase ( ALT/SGPT) 96H, Alkaline Phosphatase 75, Total Protein 7.0, Albumin 3.4, Globulin 3.6, Albumin/Globulin Ratio 0.9L, Lipase 248 Height (Feet): 6 Height (Inches): 2.00 Weight (Pounds): 260 Objective Obese WM NCAT supple CTA RRR soft obese mild epig TTP no edema non focal FAZAL ANTUNEZ Jun 19, 2017 20:21
[2017-06-19 20:25] VITALS: BP 145/90
--- NOTE | 2017-06-19 21:45 | Progress Note ---
DATE: 06/19/2017 INTERNAL MEDICINE PROGRESS NOTE SUBJECTIVE: The patient had full liquid diet today. No abdominal pain, nausea or vomiting. OBJECTIVE: VITAL SIGNS: Blood pressure is 141/90 to 166/93, heart rate 77, respiratory rate 20, and he is afebrile. NECK: Supple. LUNGS: Clear. CARDIAC: Regular. Normal S1 and S2. ABDOMEN: Soft. Mildly tender in the midepigastric region. EXTREMITIES: No edema. IMPRESSION: 1. Resolving biliary pancreatitis. 2. Cholelithiasis. 3. Elevated blood pressure. PLAN: Laparoscopic versus open cholecystectomy tomorrow. NPO tonight. Add beta-courtney prophylaxis in addition for blood pressure control. Jerzy Doe M.D. DR: Karime JOB#: [id number] CC:
[2017-06-20] VITALS (11 sets, daily range): BP systolic 121–143; BP diastolic 72–88
[2017-06-20] MEDS: NS w/KCl 20mEq 1,000 ML IV SCH ×3 (00:51→16:57)
[2017-06-20 08:22] LABS: INR 0.9 (0.9-1.1); PROTHROMBIN TIME 9.8 SEC (9.30-11.50)
[2017-06-20] MEDS ORDERED: Surgicel 4in x 8in TOPIC ONE (08:26)
[2017-06-20] MEDS ORDERED: Bupivacaine 0.25% Inj 30ml INJ ONE (08:26)
[2017-06-20] MEDS ORDERED: Lidocaine 1% 10mg/ml/Epi 0.005mg/ml 30ml vial INJ ONE (08:26)
[2017-06-20] MEDS ORDERED: Iothalamate Meglumine 60% 30ML INJ ONE (08:26)
[2017-06-20] MEDS ORDERED: Sterile Water Irrig 1000ml IRRIG ONE (09:00)
[2017-06-20] MEDS ORDERED: NS Irrig 1000ml ONE ×2 (09:00)
[2017-06-20] MEDS ORDERED: Lidocaine 1% MPF 10mg/ml 5ml ONE (09:00)
[2017-06-20] MEDS ORDERED: Neostigmine 1mg/ml 10ml Inj ONE (09:00)
[2017-06-20] MEDS ORDERED: ePHEDrine 50mg/ml Inj ONE (09:00)
[2017-06-20] MEDS ORDERED: Ketorolac 30mg Inj ONE (09:00)
[2017-06-20] MEDS ORDERED: Succinylcholine 20mg/ml 10ml vial ONE (09:00)
[2017-06-20] MEDS ORDERED: Zemuron 50mg/5ml Inj IV ONE (09:00)
[2017-06-20] MEDS ORDERED: Propofol 200mg/20ml IV ONE (09:00)
[2017-06-20] MEDS ORDERED: LR 1000ml ONE (09:00)
[2017-06-20] MEDS ORDERED: Midazolam 2mg/2ml Inj ONE (09:00)
[2017-06-20] MEDS ORDERED: fentaNYL 100 mcg/2 mL IV ONE (09:00)
[2017-06-20] MEDS ORDERED: Glycopyrrolate 0.2mg/ml 1ml Vial ONE (09:00)
[2017-06-20] MEDS ORDERED: Atropine Sulfate 0.4mg/ml inj 20ML ONE (09:00)
--- NOTE | 2017-06-20 10:00 | Anethesia Preoperative Eval ---
Anesthesia Pre-op PMH/ROS General Date of Evaluation: Jun 20, 2017 Time of Evaluation: 08:50 Anesthesiologist: Rosemarie ASA Score: ASA 2 Mallampati Score Class I : Soft palate, uvula, fauces, pillars visible Class II: Soft palate, uvula, fauces visible Class III: Soft palate, base of uvula visible Class IV: Only hard plate visible Mallampati Classification: Class III Surgeon: Aaliyah Diagnosis: Symtomatic cholelithyasis Surgical Procedure: Laparoscopic cholecystectomy Anesthesia History: none Family History: no anesthesia problems Allergies: Coded Allergies: BENZONATATE (Verified Allergy, Unknown, 06/15/17) ABDOMINAL PAIN.NAUSEA Past Medical History Cardiovascular: Reports: HTN - borderline, Denies: CAD, [place], valve dz, arrhythmia, other Pulmonary: Reports: [place], Denies: asthma, COPD, other Gastrointestinal/Genitourinary: Reports: GERD, other - h/o kidney stones, Denies: CRI, ESRD Neurologic/Psychiatric: Denies: dementia, CVA, depression/anxiety, TIA, other Endocrine: Reports: DM - borderline, Denies: hypothyroidism, steroids, other HEENT: Denies: cataract (L), cataract (R), glaucoma, TYONEK (L), TYONEK (R), other Hematology/Immune: Denies: anemia, DVT, bleeding disorder, other Musculoskeletal/Integumentary: Denies: OA, RA, DJD, DDD, edema, other Other: obesity PMH Narrative: admitted for acute abdominal pain diagnosed with 2-ndary pancreatitis. PSxH Narrative: None Anesthesia Pre-op Phys. Exam Physician Exam Last Vital Signs Date Time Temp Pulse Resp B/P (MAP) Pulse Ox O2 Delivery O2 Flow Rate FiO2 06/20/17 08:00 97.6 65 19 143/88 95 06/20/17 04:00 Room Air Constitutional: NAD Neurologic: CN 2-12 intact Cardiovascular: RRR, no M/R/G Respiratory: CTA Gastrointestinal: other - obesity Airway Exam Mallampati Score: Class III MO: limited Neck: short ROM: full Teeth: intact Dentures: no upper, no lower Anesthesia Pre-op A/P Labs Coagulation Test 06/20/17 07:32 Prothrombin Time 9.8 SEC (9.30-11.50) Prothromb Time International Ratio 0.9 (0.9-1.1) Activated Partial Thromboplast Time 28 SEC (23-33) Studies Pre-op Studies: EKG - NSR Risk Assessment & Plan Assessment: ASA 2 Plan: GA with ETT Status Change Before Surgery: No Pre-Antibiotics Drug: Ancef 2gr. Given Within 1 Hr of Incision: Yes Time Given: 09:32 JAVIER ZUÑIGA M.D. Jun 20, 2017 10:00
[2017-06-20] MEDS ORDERED: LR 1000ml 1,000 ML IVLG SCH (10:01)
[2017-06-20] MEDS ORDERED: Meperidine 50mg/ml Inj(FOR RIGORS ONLY) IV PRN (10:15)
[2017-06-20] MEDS ORDERED: Midazolam 2mg/2ml Inj IVP PRN (10:15)
[2017-06-20] MEDS ORDERED: Ketorolac 30mg Inj IV PRN ×2 (10:15→10:45)
[2017-06-20] MEDS ORDERED: Metoclopramide 10mg/2ml Inj IVP PRN (10:15)
[2017-06-20] MEDS ORDERED: DiphenhydrAMINE 50mg/ml Inj IVP PRN (10:15)
[2017-06-20] MEDS ORDERED: Hydromorphone 0.5mg/0.5ml inj IVP PRN ×2 (10:15→10:45)
--- NOTE | 2017-06-20 10:35 | Brief Operative Note ---
Immediate Post Operative Note Operative Note Pre-op Diagnosis: Acute Gallstone Pancreatitis Procedure: Laparoscopic cholecystectomy Findings: consistent w/pre-op dx studies Surgeon: Anurag Anesthesiologist: Rosemarie Anesthesia: general Specimen: yes - gallbladder Complications: none Condition: stable Fluids: see records Estimated Blood Loss: minimal Drains: none Implant(s) used?: No Tom Osborn Jun 20, 2017 10:35
[2017-06-20] MEDS ORDERED: HYDROmorphone 1mg/ml Carpuject IVP PRN (10:45)
[2017-06-20] MEDS ORDERED: Sennosides 8.6mg ORAL PRN (10:45)
[2017-06-20] MEDS ORDERED: Norco 5mg/325mg tab ORAL PRN (10:45)
[2017-06-20] MEDS ORDERED: Milk of Magnesia 30ml Ud ORAL PRN (10:45)
[2017-06-20] MEDS ORDERED: Norco 10mg/325mg tab ORAL PRN (10:45)
--- NOTE | 2017-06-20 10:48 | Immediate Post-Op Evaluation ---
Immediate Post-Op Evalulation Immediate Post-Op Evalulation Procedure: Laparoscopic cholecystectomy Date of Evaluation: Jun 20, 2017 Time of Evaluation: 10:47 IV Fluids: 1200 Blood Products: none Estimated Blood Loss: 50 Urinary Output: none Blood Pressure Systolic: 122 Blood Pressure Diastolic: 80 Pulse Rate: 78 Respiratory Rate: 22 O2 Sat by Pulse Oximetry: 99 Temperature (Fahrenheit): 97.3 Pain Score (1-10): 2 Nausea: No Vomiting: No Complications none Patient Status: awake, patent, extubated Hydration Status: adequate JAVIER ZUÑIGA M.D. Jun 20, 2017 10:48
--- NOTE | 2017-06-20 11:38 | General Progress Note ---
Assessment/Plan Assessment/Plan Assessment - gallstone pancreatitis - obesity - s/p lap kandice Recommendations - post op care - diet per surgery - OOB Subjective Allergies: Coded Allergies: BENZONATATE (Verified Allergy, Unknown, 06/15/17) ABDOMINAL PAIN.NAUSEA Subjective above noted s/p lap kandice Objective Last 24 Hour Vital Signs Date Time Temp Pulse Resp B/P (MAP) Pulse Ox O2 Delivery O2 Flow Rate FiO2 06/20/17 11:11 65 20 124/73 97 Nasal Cannula 3.0 06/20/17 10:59 71 20 121/75 96 Simple Mask 8.0 06/20/17 10:48 76 20 123/74 97 Simple Mask 8.0 06/20/17 10:48 78 22 99 06/20/17 10:43 80 20 121/72 97 Simple Mask 8.0 06/20/17 10:38 97.1 83 20 122/81 94 Simple Mask 8.0 06/20/17 08:00 97.6 65 19 143/88 95 06/20/17 04:00 99 Room Air 06/20/17 04:00 97.6 67 19 133/81 99 06/20/17 00:44 98 Room Air 06/20/17 00:43 98.2 65 17 135/80 98 06/19/17 20:30 95 Room Air 06/19/17 20:25 98.5 66 18 145/90 95 06/19/17 18:26 71 151/83 06/19/17 16:00 98.0 79 20 144/88 97 Room Air 06/19/17 12:00 98.0 77 20 141/90 99 Room Air Intake and Output 06/20/17 06/21/17 19:00 07:00 Intake Total 1100 ml Output Total 50 ml Balance 1050 ml IV Total 1100 ml Estimated Blood Loss 50 ml # Voids 1 Laboratory Tests 06/20/17 07:32: Prothrombin Time 9.8, Prothromb Time International Ratio 0.9, Activated Partial Thromboplast Time 28 Height (Feet): 6 Height (Inches): 2.00 Weight (Pounds): 260 Objective Obese WM NCAT supple CTA RRR soft obese (+) wounds no edema non focal FAZAL ANTUNEZ Jun 20, 2017 11:38
[2017-06-20] MEDS: ceFAZolin 2gm/D5W 50ml Premix IV SCH (16:57)
[2017-06-20] MEDS: Docusate 100mg cap ORAL SCH (16:57)
[2017-06-20] MEDS ORDERED: ceFAZolin sod 2 GM in D5W 110 ML IV SCH (17:00)
[2017-06-21] VITALS: BP 127/69
[2017-06-21] MEDS: ceFAZolin 2gm/D5W 50ml Premix IV SCH (01:25)
[2017-06-21 04:00] VITALS: BP 150/76
--- NOTE | 2017-06-21 05:30 | Progress Note ---
DATE: 06/20/2017 INTERNAL MEDICINE PROGRESS NOTE SUBJECTIVE: The patient is status post laparoscopic cholecystectomy uncomplicated. OBJECTIVE: VITAL SIGNS: Stable. Blood pressure is better controlled. Afebrile. NECK: Supple. LUNGS: Clear. CARDIAC: Regular. ABDOMEN: Slightly distended. Tender in the right upper quadrant. No guarding. EXTREMITIES: No edema. IMPRESSION: 1. Resolved gallstone pancreatitis. 2. Cholelithiasis status post laparoscopic cholecystectomy. 3. Mild hypertension, improved. PLAN: 1. Hydration. 2. Advance diet per surgeon. 3. Follow up laboratory studies. 4. Monitor blood pressure. 5. Salt restriction. Jerzy Doe M.D. DR: SAVANNAH JOB#: [id number] CC:
[2017-06-21] MEDS: Docusate 100mg cap ORAL SCH ×2 (08:16→17:41)
[2017-06-21 08:40] VITALS: BP 125/86
[2017-06-21 10:05] LABS: BASOPHILS % (AUTO) 1.5 % (0.0-2.0); EOSINOPHILS % (AUTO) 4.9 % (0.0-3.0); LYMPHOCYTES % (AUTO) 25.3 % (20.0-45.0); MEAN CORPUSCULAR HEMOGLOBIN 29.3 PG (27.0-31.0); MEAN CORPUSCULAR HGB CONC 32.4 G/DL (32.0-36.0); MEAN CORPUSCULAR VOLUME 90 FL (80-99); MEAN PLATELET VOLUME 7.2 FL (6.5-10.1); MONOCYTES % (AUTO) 6.4 % (1.0-10.0); NEUTROPHILS % (AUTO) 61.9 % (45.0-75.0); PLATELET COUNT 311 K/UL (150-450); RED BLOOD COUNT 5.09 M/UL (4.70-6.10); RED CELL DISTRIBUTION WIDTH 11.1 % (11.6-14.8); WHITE BLOOD COUNT 6.8 K/UL (4.8-10.8)
[2017-06-21 10:22] LABS: ALANINE AMINOTRANSFERASE 76 U/L (12-78); ANION GAP 6 mmol/L (5-15); ASPARTATE AMINO TRANSFERASE 43 U/L (15-37); CALCIUM 9.4 MG/DL (8.5-10.1); CARBON DIOXIDE 30 MMOL/L (21-32); CHLORIDE 103 MMOL/L (98-107); CREATININE 0.9 MG/DL (0.55-1.30); GLOMERULAR FILTRATION RATE > 60 mL/min (>60); POTASSIUM 3.7 MMOL/L (3.5-5.1); SODIUM 139 MMOL/L (136-145); TOTAL PROTEIN 7.3 G/DL (6.4-8.2)
--- NOTE | 2017-06-21 10:59 | 48 Hour Post Anesthesia Eval ---
Post Anesthesia Evaluation Procedure: Laparoscopic cholecystectomy Date of Evaluation: Jun 21, 2017 Time of Evaluation: 13:00 Blood Pressure Systolic: 125 0: 86 Pulse Rate: 77 Respiratory Rate: 20 Temperature (Fahrenheit): 97.8 O2 Sat by Pulse Oximetry: 96 Airway: patent Nausea: No Vomiting: No Pain Intensity: 1 Hydration Status: adequate Cardiopulmonary Status: Stable Mental Status/LOC: patient returned to baseline Follow-up Care/Observations: As per surgery Post-Anesthesia Complications: No anesthetic complication Follow-up care needed: N/A JOSHUA RODRIGUEZ M.D. Jun 21, 2017 10:59
--- NOTE | 2017-06-21 11:00 | General Progress Note ---
Progress Note Progress Note Surgery: doing very well. pain well controlled. no complaints. tolerating diet. ambulatory. no n/v/f/c. comfortable afebrile, HD stable, labs reviewed abdomen soft, nt/nd, BS+ incisions c/d/i POD #1 s/p lap kandice for acute gallstone pancreatitis. diet as tolerated activity as tolerated but no lifting >15lbs for 4 weeks okay to shower leave steristrips in place until they fall off. only needs dressings prn Rx for norco/colace written okay to d/c follow up with me in 1-2 weeks. patient has office info Tom Osborn Jun 21, 2017 11:00
[2017-06-21 11:44] VITALS: BP 149/90
[2017-06-21 16:00] VITALS: BP 145/86
--- NOTE | 2017-06-21 16:30 | Operative Note - Dictated ---
DATE OF OPERATION: 06/20/2017 PREOPERATIVE DIAGNOSIS: Acute gallstone pancreatitis. POSTOPERATIVE DIAGNOSIS: Acute gallstone pancreatitis. OPERATION PERFORMED: Laparoscopic cholecystectomy. ATTENDING SURGEON: Tom Osborn M.D. SHOESHINER: None. ANESTHESIOLOGIST: Bnih Houston M.D. 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 SPECIMENS: Gallbladder sent to pathology for review COMPLICATIONS: None. ESTIMATED BLOOD LOSS: Minimal. IV FLUIDS: Please see anesthesia records. WOUND CLASSIFICATION: Class III. COUNTS: Sponge and needle count correct x2. DRAINS: None. INDICATIONS FOR PROCEDURE: This is a 46-year-old male who presented to the emergency department complaining of worsening epigastric upper abdominal pain. On further evaluation, the patient was noted to have an elevated liver enzymes and lipase. Ultrasound identified multiple gallstones and given the above data, the patient was diagnosed with acute gallstone pancreatitis. Over the subsequent few days after medical management the patient's pancreatitis resolved and given history surgery was indicated for cholecystectomy. The risks, benefits, and alternatives to surgery were discussed with the patient in detail. The patient expressed understanding and consented of surgery. OPERATIVE NOTE: The patient taken to the operating room, placed on the operative table in supine position with bilateral arms out. All bony prominences were well padded with gel pads. SCDs were placed. Preoperative time-out was taken identifying the patient, procedure, operative staff, and surgical staff. IV antibiotics were administered one hour prior to cut time. General anesthesia was induced and the patient is intubated. No Houser catheter was placed given the patient voided prior to entering to the operating room. Abdomen was clipped, prepped and draped in standard surgical fashion. We began by making an umbilical incision using a fresh #11 blade which was carried down to the fascia. The fascia was elevated and incised. Entry into the abdomen was obtained directly with visual confirmation. Using the open Nathaly technique, a Nathaly trocar was inserted and abdomen was insufflated 12 to 15 mmHg. Laparoscope was inserted. No injury from initial trocar placement was noted. The patient was then placed in the reverse Trendelenburg position with the right side up. Secondary trocars were placed under direct visualization beginning with a 12 mm epigastric trocar followed by two 5 mm trocars in the right subcostal region. The trocars were placed without complication. Local anesthetic was used for all incisions upon entry. The omental attachments to the gallbladder were gently dissected off with blunt dissection and electrocautery as necessary. The dome of the gallbladder was then grasped through the most lateral port and retracted over the liver. The infundibular gallbladder was grasped using midclavicular port and retracted toward the appendix. Thin peritoneal lining of the gallbladder was dissected down and was taken down. This exposed the critical view identifying both the cystic duct, cystic artery, and cystic plate as well as lymph node and these were the only structures entering directly into the gallbladder. In evaluating the cystic duct, there was noted to be a small stone just lodged between the cystic duct and infundibular junction. This was gently swept back into the gallbladder. Following this, the cystic duct and artery were doubly clipped and divided. No bleeding from the cystic artery or leakage of bile from the cystic duct stump was identified. Clips looked to be in satisfactory position. At this time, the gallbladder was removed from the liver bed using electrocautery. Once this was completed, it was placed in endoscopic retrieval bag and removed from the epigastric port without complication. The abdomen was then reinspected. There was no bleeding or leakage of bile or other immediate postoperative complications. At this time, we began our conclusion of the procedure. Secondary trocars were removed under direct visualization. The umbilical trocar was removed. The abdomen was allowed to desufflate. The wounds were irrigated out and then we began by closing the larger umbilical and epigastric port site fascia using 0 Vicryl sutures. The remaining skin incisions were then closed using 4-0 Monocryl subcuticular interrupted sutures. Steri-Strips and skin glue were applied. The patient tolerated the procedure well, was extubated, taken to postanesthesia care unit in stable condition. Tom Osborn M.D. DR: JEANIE JOB#: [id number] CC: VERNA
--- NOTE | 2017-06-21 16:55 | General Progress Note ---
Assessment/Plan Assessment/Plan Assessment - gallstone pancreatitis - obesity - s/p lap kandice Recommendations - post op care - diet per surgery - OOB - d/c planning Subjective Allergies: Coded Allergies: BENZONATATE (Verified Allergy, Unknown, 06/15/17) ABDOMINAL PAIN.NAUSEA Subjective above noted POD #1 s/p lap kandice Objective Last 24 Hour Vital Signs Date Time Temp Pulse Resp B/P (MAP) Pulse Ox O2 Delivery O2 Flow Rate FiO2 06/21/17 16:00 97.8 66 19 145/86 95 06/21/17 12:09 98.0 06/21/17 11:44 98.0 66 20 149/90 94 06/21/17 10:59 77 20 96 06/21/17 08:40 97.8 77 20 125/86 96 06/21/17 04:00 97.9 69 18 150/76 92 Room Air 06/21/17 00:00 97.4 65 18 127/69 90 Room Air 06/20/17 20:00 97.2 74 20 138/83 96 Room Air Intake and Output 06/21/17 06/22/17 19:00 07:00 Intake Total 725 ml Balance 725 ml Intake Oral 725 ml # Voids 1 Laboratory Tests 06/21/17 09:35: White Blood Count 6.8, Red Blood Count 5.09, Hemoglobin 14.9, Hematocrit 46.0, Mean Corpuscular Volume 90, Mean Corpuscular Hemoglobin 29.3, Mean Corpuscular Hemoglobin Concent 32.4, Red Cell Distribution Width 11.1L, Platelet Count 311, Mean Platelet Volume 7.2, Neutrophils (%) (Auto) 61.9, Lymphocytes (%) (Auto) 25.3, Monocytes (%) (Auto) 6.4, Eosinophils (%) (Auto) 4.9H, Basophils (%) (Auto ) 1.5, Sodium Level 139, Potassium Level 3.7, Chloride Level 103, Carbon Dioxide Level 30, Anion Gap 6, Blood Urea Nitrogen 10, Creatinine 0.9, Estimat Glomerular Filtration Rate > 60, Glucose Level 131H, Calcium Level 9.4, Total Bilirubin 0.4, Aspartate Amino Transf (AST/SGOT) 43H, Alanine Aminotransferase ( ALT/SGPT) 76, Alkaline Phosphatase 69, Total Protein 7.3, Albumin 3.6, Globulin 3.7, Albumin/Globulin Ratio 1.0, Lipase 158 Height (Feet): 6 Height (Inches): 2.00 Weight (Pounds): 260 Objective Obese WM NCAT supple CTA RRR soft obese (+) wounds no edema non focal FAZAL ANTUNEZ Jun 21, 2017 16:55
--- NOTE | 2017-06-21 20:19 | Discharge Instructions ---
Discharge Instructions Discharge Instructions Follow up with: Dr. Doe in 1-[address] up[address] Osborn in 1-2 weeks Call MD/Return to Hospital if: worsening condition Diet: regular Resume Normal Activity?: Yes Activity: resume normal activities, other - no heavy lifting >15lbs for 4 weeks For Surgical Patients Clean and Dry: surgical site Dressing Care: keep dry and clean Contact your physician for: bleeding, pain, redness, yellowish discharge in the op. site, other For Congestive Heart Failure Reminder Report to your physician any weight gain of 5 pounds or more in one week. Tom Osborn Jun 21, 2017 20:19
[2017-06-21 20:31] VITALS: BP 155/96
--- NOTE | 2017-06-22 01:00 | Discharge Summary ---
DATE OF ADMISSION: 06/15/2017 DATE OF DISCHARGE: 06/21/2017 HOSPITAL COURSE: The patient was admitted with abdominal pain and clinical and laboratory evidence of acute pancreatitis with transaminitis. He was placed NPO and hydrated and abnormal abdominal ultrasound revealed cholelithiasis. The patient stabilized with conservative measures and ultimately underwent laparoscopic cholecystectomy. He was noted to have a borderline hemoglobin A1c of 6.1 and was advised as to dietary restriction of carbohydrates and increase in exercise. He was also noted to have some elevations of blood pressure readings preoperatively although they improved and was to be followed as an outpatient for further blood pressure assessment. He was discharged home in stable condition. FINAL DIAGNOSES: 1. Acute pancreatitis. 2. Cholelithiasis status post cholecystectomy. 3. Borderline elevation of hemoglobin A1c. 4. Elevated blood pressure, possible essential hypertension. 5. Transaminitis, resolved. Jerzy Doe M.D. DR: MARIELY JOB#: [id number] CC:
== END 2017-06-21 21:30 | disposition home or self-care (01) | DRG 419 ==
LOC: EMR 15:15 → EDBEDREQ 16:21 → 3E 16:27 → EDBEDREQ 16:49 → 3E 17:49
PROC: 0FT44ZZ Resection of Gallbladder, Percutaneous Endoscopic Approach (ICD-10-PCS; principal; 2017-06-20 09:00)
DX: K85.10 Biliary acute pancreatitis without necrosis or infection (principal); I10 Essential (primary) hypertension; R74.0 Nonspecific elevation of levels of transaminase and lactic acid dehydrogenase [LDH]; E66.9 Obesity, unspecified; Z68.33 Body mass index [BMI] 33.0-33.9, adult; M10.9 Gout, unspecified; R73.9 Hyperglycemia, unspecified; Z87.442 Personal history of urinary calculi
CPT/HCPCS: 36415; 76700; 80048; 80053; 80061; 80076; 81003; 82248; 83036; 83690; 85025; 85610; 85730; 90630; 93005; 94003; 94150; 99285; J2250; J2405; J2710